=== PATIENT | female | born 1955 | race Caucasian/White ===

== ENCOUNTER 2019-11-08 10:07 | Inpatient (IN) | payer MEDICAID, OTHER ==
[~2019-11-08] VITALS: Ht 154.9 cm; Wt 63.0 kg
[~2019-11-08 10:07] MED LIST: TRAMADOL
[2019-11-08] MEDS ORDERED: ONDANSETRON HCL 4MG/2ML INJ IV STA (10:55)
[2019-11-08] MEDS ORDERED: SODIUM CHLORIDE 0.9% 1,000 ML IV ONE (10:55)
[2019-11-08] MEDS ORDERED: MORPHINE SULFATE 4 MG/ML CPJ (NOT FOR IM USE) IV STA (10:55)
[2019-11-08 11:56] LABS: CHLORIDE 105 mEq/L (98-107)
[2019-11-08 12:02] LABS: BASOPHILS % 0.7 % (0.0-2.0); HEMATOCRIT. 38.5 % (36.0-48.0); LYMPHOCYTES % 18.4 % (20.0-50.0); MEAN CORPUSCULAR HEMOGLOBIN 29.6 pg (28.0-32.0); MEAN CORPUSCULAR VOLUME 87.4 fL (81.0-99.0); MEAN PLATELET VOLUME 8.7 fl (7.4-10.4); MONOCYTES % 4.4 % (2.0-8.0); NEUTROPHILS % 76.5 % (40.0-76.0); PLATELET 288 x1000/uL (130-400); RED BLOOD CELL COUNT 4.41 mill/uL (4.2-5.4); RED CELL DISTRIBUTION WIDTH 15.2 % (11.6-14.6)
[2019-11-08 12:07] LABS: PROTHROMBIN TIME 10.9 sec (9.6-11.0)
[2019-11-08 12:53] LABS: CLARITY URINE CLEAR (CLEAR); COLOR URINE YELLOW (YELLOW); KETONES URINE 1+ (NEGATIVE); LEUKOCYTE ESTERASE URINE 1+ (NEGATIVE); NITRITE URINE NEGATIVE (NEGATIVE); OCCULT BLOOD URINE NEGATIVE (NEGATIVE); PH URINE 8.5 (4.5-8.0); PROTEIN URINE NEGATIVE (NEGATIVE); SPECIFIC GRAVITY URINE 1.005 (1.005-1.030); UROBILINOGEN URINE 0.2 E.U./dL (0.2-1.0)
[2019-11-08] MEDS ORDERED: CEFTRIAXONE 1 G PREMIX 50 ML IV ONE (13:00)
[2019-11-08] MEDS ORDERED: LORAZEPAM 2MG/ML CPJ IV ONE (13:00)
[2019-11-08] MEDS ORDERED: IOHEXOL-300 100 ML BOTTLE ONE (13:18)
[2019-11-08] MEDS ORDERED: ACETAMINOPHEN 325MG TABLET PO PRN (14:45)
[2019-11-08] MEDS ORDERED: POTASSIUM CHLORIDE 20MEQ TABLET SR PO NR (14:45)
[2019-11-08 16:00] VITALS: BP 127/79
[2019-11-08] MEDS ORDERED: ALPR-340 PO (16:32)
[2019-11-08] MEDS: MORPHINE SULFATE 2 MG/ML CPJ (NOT FOR IM USE) IV PRN ×2 (16:49→21:41)
[2019-11-08] MEDS: ALPRAZOLAM 0.5 MG TABLET PO PRN (17:29)
[2019-11-08] MEDS: PANTOPRAZOLE SODIUM 40 MG/VIAL IV SCH (17:36)
[2019-11-08 20:00] VITALS: BP 134/67
[2019-11-08] MEDS: LORAZEPAM 2MG/ML CPJ IV PRN (23:54)
[2019-11-09] VITALS (8 sets, daily range): BP systolic 110–138; BP diastolic 61–87
[2019-11-09] MEDS: MORPHINE SULFATE 2 MG/ML CPJ (NOT FOR IM USE) IV PRN ×3 (04:12→23:50)
[2019-11-09 06:24] LABS: CHLORIDE 106 mEq/L (98-107)
[2019-11-09 06:39] LABS: BASOPHILS % 0.7 % (0.0-2.0); EOSINOPHILS % 1.8 % (0.0-5.0); HEMATOCRIT. 38.1 % (36.0-48.0); HEMOGLOBIN. 12.8 g/dL (12.0-16.0); LYMPHOCYTES % 32.4 % (20.0-50.0); MEAN CORPUSCULAR HEMOGLOBIN 29.8 pg (28.0-32.0); MEAN CORPUSCULAR VOLUME 88.7 fL (81.0-99.0); MEAN PLATELET VOLUME 9.1 fl (7.4-10.4); MONOCYTES % 7.3 % (2.0-8.0); NEUTROPHILS % 57.8 % (40.0-76.0); PLATELET 264 x1000/uL (130-400); RED BLOOD CELL COUNT 4.29 mill/uL (4.2-5.4); RED CELL DISTRIBUTION WIDTH 15.1 % (11.6-14.6)
[2019-11-09] MEDS: PANTOPRAZOLE SODIUM 40 MG/VIAL IV SCH (09:39)
[2019-11-09] MEDS: ALPRAZOLAM 0.5 MG TABLET PO PRN (10:47)
[2019-11-09] MEDS ORDERED: CEFTRIAXONE 1 G PREMIX 50 ML IV SCH (13:00)
[2019-11-09] MEDS ORDERED: POTASSIUM CHLORIDE 20MEQ TABLET SR PO NR (13:30)
[2019-11-09] MEDS: LORAZEPAM 2MG/ML CPJ IV PRN ×2 (19:26→21:10)
[2019-11-09] MEDS: ONDANSETRON HCL 4MG/2ML INJ IV PRN (23:50)
[2019-11-10] VITALS: BP 124/75
[2019-11-10] MEDS: LORAZEPAM 2MG/ML CPJ IV PRN ×2 (03:13→22:00)
[2019-11-10 04:00] VITALS: BP 125/66
[2019-11-10] MEDS: MORPHINE SULFATE 2 MG/ML CPJ (NOT FOR IM USE) IV PRN ×3 (05:02→14:10)
[2019-11-10 06:44] LABS: BASOPHILS % 0.5 % (0.0-2.0); EOSINOPHILS % 1.5 % (0.0-5.0); HEMATOCRIT. 38.7 % (36.0-48.0); HEMOGLOBIN. 12.9 g/dL (12.0-16.0); LYMPHOCYTES % 22.9 % (20.0-50.0); MEAN CORPUSCULAR HEMOGLOBIN 29.3 pg (28.0-32.0); MEAN CORPUSCULAR VOLUME 87.8 fL (81.0-99.0); MEAN PLATELET VOLUME 8.6 fl (7.4-10.4); MONOCYTES % 7.1 % (2.0-8.0); PLATELET 270 x1000/uL (130-400); RED BLOOD CELL COUNT 4.41 mill/uL (4.2-5.4)
[2019-11-10 08:00] VITALS: BP 136/85
[2019-11-10] MEDS: PANTOPRAZOLE SODIUM 40 MG/VIAL IV SCH (09:03)
[2019-11-10 09:10] LABS: CHLORIDE 104 mEq/L (98-107)
[2019-11-10 12:00] VITALS: BP 133/75
[2019-11-10] MEDS: ONDANSETRON HCL 4MG/2ML INJ IV PRN (13:58)
[2019-11-10] MEDS: CEFTRIAXONE 1 G PREMIX 50 ML IV SCH (13:58)
[2019-11-10 16:00] VITALS: BP 123/78
[2019-11-10 20:00] VITALS: BP 139/85
[2019-11-11] VITALS: BP 135/90
[2019-11-11] MEDS: MORPHINE SULFATE 2 MG/ML CPJ (NOT FOR IM USE) IV PRN ×3 (00:06→12:11)
[2019-11-11 04:00] VITALS: BP 131/83
[2019-11-11] MEDS ORDERED: POTASSIUM CHLORIDE 20MEQ TABLET SR PO NR (04:30)
[2019-11-11] MEDS: LORAZEPAM 2MG/ML CPJ IV PRN ×4 (04:34→20:52)
[2019-11-11 06:55] LABS: BASOPHILS % 0.5 % (0.0-2.0); EOSINOPHILS % 1.7 % (0.0-5.0); HEMOGLOBIN. 13.8 g/dL (12.0-16.0); LYMPHOCYTES % 29.9 % (20.0-50.0); MEAN CORPUSCULAR HEMOGLOBIN 30.4 pg (28.0-32.0); MEAN CORPUSCULAR VOLUME 88.2 fL (81.0-99.0); MEAN PLATELET VOLUME 8.8 fl (7.4-10.4); MONOCYTES % 8.1 % (2.0-8.0); NEUTROPHILS % 59.8 % (40.0-76.0); PLATELET 264 x1000/uL (130-400); RED BLOOD CELL COUNT 4.53 mill/uL (4.2-5.4); RED CELL DISTRIBUTION WIDTH 14.7 % (11.6-14.6)
[2019-11-11 07:48] LABS: CHLORIDE 103 mEq/L (98-107)
[2019-11-11 08:33] VITALS: BP 115/84
[2019-11-11] MEDS: FAMOTIDINE 20MG/2ML VIAL IV SCH ×2 (09:29→20:52)
[2019-11-11 11:58] VITALS: BP 133/70
[2019-11-11] MEDS: CEFTRIAXONE 1 G PREMIX 50 ML IV SCH (12:10)
[2019-11-11] MEDS: ONDANSETRON HCL 4MG/2ML INJ IV PRN (12:10)
[2019-11-11] MEDS ORDERED: POTASSIUM CHLORIDE INJ 40 MEQ in DEXT 5% WATER 250 ML IV NR (15:00)
[2019-11-11 16:29] VITALS: BP 125/70
[2019-11-11] MEDS: METOCLOPRAMIDE HCL 10MG/2ML VIAL IV SCH ×2 (17:13→17:15)
[2019-11-11 20:00] VITALS: BP 138/85
[2019-11-12 00:03] VITALS: BP 115/65
[2019-11-12] MEDS: MORPHINE SULFATE 2 MG/ML CPJ (NOT FOR IM USE) IV PRN ×3 (00:33→09:31)
[2019-11-12] MEDS: LORAZEPAM 2MG/ML CPJ IV PRN ×2 (03:58→13:13)
[2019-11-12 04:00] VITALS: BP 122/74
[2019-11-12] MEDS: METOCLOPRAMIDE HCL 10MG/2ML VIAL IV SCH ×3 (05:03→12:00)
[2019-11-12] MEDS: ONDANSETRON HCL 4MG/2ML INJ IV PRN (06:50)
[2019-11-12 07:05] LABS: BASOPHILS % 0.8 % (0.0-2.0); HEMATOCRIT. 41.6 % (36.0-48.0); HEMOGLOBIN. 13.9 g/dL (12.0-16.0); MEAN CORPUSCULAR HEMOGLOBIN 29.6 pg (28.0-32.0); MEAN PLATELET VOLUME 9.6 fl (7.4-10.4); MONOCYTES % 6.1 % (2.0-8.0); NEUTROPHILS % 60.1 % (40.0-76.0); PLATELET 255 x1000/uL (130-400); RED BLOOD CELL COUNT 4.67 mill/uL (4.2-5.4)
[2019-11-12 07:08] LABS: CHLORIDE 104 mEq/L (98-107)
[2019-11-12 08:00] VITALS: BP 137/77
[2019-11-12] MEDS: FAMOTIDINE 20MG/2ML VIAL IV SCH (09:30)
[2019-11-12] MEDS ORDERED: ONDA4TAB11 PO (13:05)
[2019-11-12] MEDS: CEFTRIAXONE 1 G PREMIX 50 ML IV SCH (13:13)
[2019-11-12 13:37] VITALS: BP 123/71
[2019-11-12 13:48] VITALS: BP 123/71
== END 2019-11-12 16:55 | disposition home or self-care (01) | DRG 720 ==
LOC: ER 10:21 → 6WST 13:08 → EDBEDREQ 13:16 → ENRESERV 14:45
PROVIDERS: ADMIT Internal Medicine; ATTEND Internal Medicine
DX: A41.9 Sepsis, unspecified organism (principal); M48.54XA Collapsed vertebra, not elsewhere classified, thoracic region, initial encounter for fracture; K76.0 Fatty (change of) liver, not elsewhere classified; N12 Tubulo-interstitial nephritis, not specified as acute or chronic; E66.9 Obesity, unspecified; K52.9 Noninfective gastroenteritis and colitis, unspecified; E87.6 Hypokalemia; F41.9 Anxiety disorder, unspecified; Z90.49 Acquired absence of other specified parts of digestive tract; Z68.26 Body mass index [BMI] 26.0-26.9, adult; Z88.0 Allergy status to penicillin; Z87.442 Personal history of urinary calculi
CPT/HCPCS: 36415; 74177; 80048; 80053; 81003; 83605; 85025; 87015; 87045; 87427; 87449; 93005; 99285; C9113; J0696; J2060; J2270; J2405; J2765; J3480; J3490; J7030; J7060; Q9967